=== PATIENT | female | born 1945 | race Caucasian/White ===

== ENCOUNTER 2017-07-02 17:19 | Emergency (ER) | payer MEDICARE ==
[~2017-07-02] VITALS: Wt 72.6 kg
[2017-07-02] MEDS ORDERED: LEVOFLOXACIN500 MG PO (19:45)
== END 2017-07-02 20:21 | disposition home or self-care (01) ==
LOC: ED 17:19
DX: J18.9 Pneumonia, unspecified organism (principal)

== ENCOUNTER 2024-07-13 16:32 | Emergency (ER) | payer MEDICARE ==
[~2024-07-13] VITALS: Ht 157.4 cm; Wt 63.5 kg
[~2024-07-13 16:32] MED LIST: LEVOFLOXACIN500 MG PO
[2024-07-13] MEDS ORDERED: ENTRESTO 24 MG1 EACH PO (16:52)
[2024-07-13] MEDS ORDERED: METOPROLOL SUCC25 M2 PO (16:52)
[2024-07-13] MEDS ORDERED: ROSUVASTATIN CAL5 MG PO (16:53)
[2024-07-13] MEDS ORDERED: METFORMIN HYD1000 MG PO (16:53)
[2024-07-13] MEDS ORDERED: Acetaminophen/Hydrocodone 5 MG/325 MG TABLET PO ONE ×3 (16:55→22:05)
[2024-07-13] MEDS ORDERED: IOHEXOL 300 MG/ML 100 ML VIAL IV ONE (18:25)
[2024-07-13 19:22] LABS: POTASSIUM 5.6 mmol/L (3.4-5.1)
[2024-07-13] MEDS ORDERED: SODIUM CHLORIDE 0.9% 1,000 ML IV ONE (19:30)
[2024-07-13] MEDS ORDERED: fentaNYL CITRATE 100 MCG/2 ML VIAL IV ONE (19:55)
[2024-07-13 19:59] LABS: BASO % 0.3 % (0.0-1.0); EOS % 0.4 % (1.0-4.0); HEMATOCRIT 32.8 % (37.0-47.0); MEAN CELL VOLUME 95.3 fl (81.0-99.0); MEAN CORPUSCULAR HGB 30.5 pg (27.0-31.0); MEAN PLATELET VOLUME 8.5 fl (9.6-12.3); MONO # 0.6 10*3/uL (0.1-1.0); MONO % 6.2 % (3.0-9.0); NEUT # 7.1 10*3/uL (2.3-7.9); PLATELET COUNT AUTOMATED 214 10*3/uL (130-400); RED BLOOD COUNT 3.44 10*6/uL (4.10-5.10); RED CELL DISTRI WIDTH 14.3 % (0-14.5); WHITE BLOOD COUNT 9.2 10*3/uL (4.8-10.8)
[2024-07-13] MEDS ORDERED: HYDROCODONE-AC1 EAC1 PO (21:58)
== END 2024-07-13 22:10 | disposition home or self-care (01) ==
LOC: ED 16:32
PROVIDERS: Nurse Practitioner Family
DX: S22.41XA Multiple fractures of ribs, right side, initial encounter for closed fracture (principal); I12.9 Hypertensive chronic kidney disease with stage 1 through stage 4 chronic kidney disease, or unspecified chronic kidney disease; E11.22 Type 2 diabetes mellitus with diabetic chronic kidney disease; N18.9 Chronic kidney disease, unspecified; E87.5 Hyperkalemia; E87.1 Hypo-osmolality and hyponatremia; Z79.899 Other long term (current) drug therapy; W18.11XA Fall from or off toilet without subsequent striking against object, initial encounter; Y93.89 Activity, other specified; Y92.89 Other specified places as the place of occurrence of the external cause; Y99.8 Other external cause status